=== PATIENT | male | born 1950 | race Caucasian/White ===

== ENCOUNTER 2016-09-10 10:01 | Day surgery (SDC) | payer MEDICARE ==
--- NOTE | ~2016-09-10 | CN ---
Consultation Report [facility] [address] [facility] [place]. [address] NAME: HELEN TAVAREZ : 46 STATUS : [facility]#: [id number] AGE: 65 ADM/REG DATE : 09/10/16 MR#: [id number] REPORT SERV DATE: 09/10/16 DICTATED BY: ILAN LIPSCOMB DATE: 09/10/16 REPORT STATUS : Draft TRANSCRIBED BY: MODOle DATE: 09/10/16 CONSULTATION REPORT DATE OF CONSULTATION: Dear Dr. Angle Lawrence: Thank you for requesting my opinion regarding evaluation and management of Mr. Helen Tavarez' right upper lobe lung mass and multiple pulmonary nodules. Mr. Tavarez is an extremely pleasant 65-year-old gentleman with a significant past medical history of former tobacco abuse, asthma, bronchitis, and pulmonary embolism who presents for formal evaluation for EBUS and navigation bronchoscopy. The patient had an abnormal PET-CT scan that demonstrated three right-sided pulmonary lesions and CT scan on 04/14/2016 demonstrated a 3.5 cm right upper lobe lung mass as well as small right lower lobe lung nodules. The patient underwent a bronchoscopy with biopsy of the right upper lobe lung mass on 04/16/2016, negative for malignancy. The patient completed an additional course of antibiotics and then had a PET-CT scan on 04/30/2016 that demonstrated a good uptake in the 1.3 cm right lower lobe pleural- based nodule with only faint uptake in the 3.2 x 2.4 cm right upper lobe lung nodule with no distant metastases. The patient underwent a CT-guided needle biopsy of the right lower lobe lung nodule that demonstrated a CT-guided needle biopsy performed on 06/03/2016 that demonstrated heavy chronic inflammation with dense scarring and reactive epithelial changes. Features of malignancy were not evident. The patient states that he has chronic shortness of breath, well localized to the chest, nonradiating with no significant alleviating or exacerbating factors. REVIEW OF SYSTEMS: A detailed 14-point review of systems was completed. Pertinent positives and negatives are listed above. PAST MEDICAL HISTORY: 1. Asthma. 2. Bronchitis. 3. Prior tobacco abuse. 4. History of PE. 5. Hypertension. 6. Prior history of pneumonia. 7. Skin cancer. PAST SURGICAL HISTORY: 1. Skin cancer surgery on his back. 2. Hernia repair. 3. Tonsillectomy. FAMILY HISTORY: Cerebrovascular accident, diabetes, malignant tumor of the colon, and Consultation Report [address] [place]. [address] NAME: HELEN TAVAREZ : [birth year] STATUS : [facility] PAT#: [id number] AGE: 65 ADM/REG DATE : 09/10/16 MR#: [id number] REPORT SERV DATE: 09/10/16 DICTATED BY: ILAN LIPSCOMB DATE: 09/10/16 REPORT STATUS : Draft TRANSCRIBED BY: SARAH DATE: 09/10/16 congestive heart failure. SOCIAL HISTORY: The patient is a former smoker, smoked five cigars in the lifetime, the last one was 50 years ago. He also abuses chewing tobacco two to four times daily. He denies any significant alcohol or illicit drug abuse. PHYSICAL EXAMINATION: VITAL SIGNS: Reviewed and located in the paper chart. GENERAL: In no acute distress. Able to communicate in full paragraphs at a time. HEENT: Normocephalic and atraumatic. Pupils are equal, round, and reactive to light and accommodation. Posterior oropharynx is clear. NECK: No JVD. No LAD. Trachea midline. CARDIOVASCULAR: Regular rate and rhythm. S1 and S2 present. LUNGS: Clear to auscultation bilaterally. ABDOMEN: Nontender and nondistended. Soft. Positive bowel sounds. EXTREMITIES: No clubbing, cyanosis, or edema. SKIN: No new rashes, lesions, or ulcers. Chronic venous stasis changes. PSYCHIATRIC: Alert and oriented x3. Appropriate mood and affect. Appropriate insight and judgment. NEUROLOGIC: 5/5 strength in upper and lower extremities. Cranial nerves II through XII are intact. Gait not tested. DTRs not performed. DIAGNOSTIC DATA: CT scan of the chest performed on 08/19/2016 demonstrated three right-sided pulmonary nodules and possibly two or three smaller ones, three of the largest lung nodules have increased in size since the prior CT scan on 06/03/2016 suggesting interval progression of the patient's disease process. ASSESSMENT AND PLAN: Mr. Helen Tavarez is an extremely pleasant 65-year-old gentleman with a significant past medical history of chronic obstructive pulmonary disease who presents for formal evaluation of multiple pulmonary nodules. The largest lung mass is in the right upper lobe. The patient underwent two prior biopsies including bronchoscopy by Dr. Angle Lawrence and a CT-guided needle biopsy that did not demonstrate malignancy. At this point, I recommend that we obtain an EBUS and navigation bronchoscopy. However, some of the lesions are inaccessible through EBUS bronchoscopy alone. I will also speak with cardiothoracic surgeon, Dr. Franco, for his input. The patient is aware that bronchoscopy is associated with potential life-threatening risks, including lung collapse, respiratory failure, and even . RECOMMENDATIONS: A summary of my recommendations are as follows: 1. Proceed with EBUS and navigation bronchoscopy for biopsies of mediastinal lymphadenopathy and the right upper lobe lung lesion. 2. Co-consultation with Dr. Ivan Franco of Thoracic Surgery for additional input regarding some of the other pulmonary nodules. 3. Regardless either if biopsies or surgical interventions are inconclusive, the patient Consultation Report [address] [place]. [address] NAME: HELEN TAVAREZ : 46 STATUS : [facility] PAT#: [id number] AGE: 65 ADM/REG DATE : 09/10/16 MR#: [id number] REPORT SERV DATE: 09/10/16 DICTATED BY: ILAN LIPSCOMB DATE: 09/10/16 REPORT STATUS : Draft TRANSCRIBED BY: SARAH DATE: 09/10/16 will require mandatory continued followup regarding these pulmonary nodules. Thank you for allowing me to participate in Mr. Helen Tavarez' care. XOCHITL/SARAH Ilan Lipscomb M.D. / [id number] CC: Robert Thomason BRIAN
--- NOTE | ~2016-09-10 | EGD ---
EGD REPORT [facility] [address] [address] NAME: HELEN TAVAREZ : 46 STATUS : REG [facility] PAT#: [id number] AGE: 65 ADM/REG DATE : 09/10/16 MR#: [id number] REPORT SERV DATE: 09/10/16 DICTATED BY: PORTIA LIPSCOMB DATE: 09/10/16 REPORT STATUS : Draft [facility]ANS[facility]: [facility] DATE: 09/10/16 Pulmonology Patient Name: Helen Tavarez Procedure Date: 09/10/2016 1:44 PM Date of : 1950 Attending MD: TIP LIPSCOMB MD Procedure Date No Time: 09/10/2016 Procedure: EBUS Navigational Bronchoscopy Indications: RUL lung mass Providers: TIP LIPSCOMB MD Referring MD: Tin Daily Medicines: Lidocaine 2% 20 mL Complications: No immediate complications Procedure: Pre-Anesthesia Assessment: - ASA Grade Assessment: III - A patient with severe systemic disease. - A History and Physical has been performed. Patient meds and allergies have been reviewed. The risks and benefits of the procedure and the sedation options and risks were discussed with the patient. All questions were answered and informed consent was obtained. Patient identification and proposed procedure were verified prior to the procedure by the physician and the nurse in the pre-procedure area in the procedure room. Mental Status Examination: normal. CV Examination: normal and RRR, no murmurs, no S3 or S4. ASA Grade Assessment: IV - A patient with severe systemic disease that is a constant threat to life. After reviewing the risks and benefits, the patient was deemed in satisfactory condition to undergo the procedure. The anesthesia plan was to use general anesthesia. Immediately prior to administration of medications, the patient was re-assessed for adequacy to receive sedatives. The heart rate, respiratory rate, oxygen saturations, blood pressure, adequacy of pulmonary ventilation, and response to care were monitored throughout the procedure. The physical status of the patient was re-assessed after the procedure. After obtaining informed consent, the Bronchoscope was introduced through the mouth, via the endotracheal tube (the patient was intubated for the procedure) and advanced to the tracheobronchial tree. the BF [id number] was introduced through the and advanced to the. The procedure was accomplished without difficulty. The patient tolerated the procedure well. Findings: EGD REPORT [address] [place]. [address] NAME: HELEN TAVAREZ : 46 STATUS : REG [facility]#: [id number] AGE: 65 ADM/REG DATE : 09/10/16 MR#: [id number] REPORT SERV DATE: 09/10/16 DICTATED BY: PORTAI LIPSCOMB DATE: 09/10/16 REPORT STATUS : Draft [facility]ANSCRIBED BY: [facility] DATE: 09/10/16 The endotracheal tube is in good position. The visualized portion of the trachea is of normal caliber. The angela is sharp. The tracheobronchial tree was examined to at least the first subsegmental level. RUL anterior subsegment is bronchostenosed. Balloon bronchoplasty was performed with a paulina #4 successfully. Previous to bronchoplasty the EWC could not be passed. EBUS TBNA of lymph node level 7 x 4 passes for cytology EBUS TBNA of lymph node level 4R x 4 passes for cytology Using SuperDimension Edge catheter 180, peripheral probe EBUS 17s, and fluoroscopy, I performed the following biopsies: RUL lung mass transbronchial needle aspirates x 7 passes for cytology RUL lung mass transbronchial brush biopsies x 3 passes for cytology RUL lung mass transbronchial forcep biopsies x 9 passes for histopathology SANDY endobronchial brush biopsies were performed for the Percepta Bronchoalveolar lavage was performed in the right upper lobe of the lung and sent for cell count, cytology, bacterial culture, viral smears \T\ culture, and fungal and AFB analysis. 180 mL of fluid were instilled. 40 mL were returned. The return was blood-tinged and cellular. Impression: Rapid On-Site Evaluation (RAINA): Preliminary cytology is suggestive of a benign lesion (final results are pending). Successful balloon bronchoplasty performed of the RUL anterior susegment. Recommendation: - Await test results. - Await Percepta test to assess post test probability of malignancy. - If negative for malignancy, we will consider Thoracic Surgical consultation with Dr. Ivan Franco. Attending Participation: I personally performed the entire procedure. TIP LIPSCOMB MD 09/10/2016 3:46 PM This report has been signed electronically. Number of Addenda: 0 Note Initiated On: 09/10/2016 1:44 PM [address] [place] [address]
[~2016-09-10 10:01] MED LIST: LOP25 PO; XARELTO10 MG PO; XARELTO20 MG PO
[2016-09-10 10:30] LABS: BASOPHILS 1.1 %; EOSINOPHILS 4.1 %; EOSINOPHILS ABSOLUTE 0.36 10/3/uL (0.0-0.53); HEMATOCRIT 48.8 % (40.0-51.0); HEMOGLOBIN 16.4 g/dL (13.6-17.8); IMMATURE GRANULOCYTES 0.3 %; IMMATURE GRANULOCYTES ABSOLUTE 0.03 10/3/uL (0.0-0.11); LYMPHOCYTES 29.1 %; LYMPHOCYTES ABSOLUTE 2.55 10/3/uL (0.67-4.30); MEAN CORPUS HGB CONC 33.6 g/dL (32.0-36.0); MEAN CORPUSCULAR HEMOGLOB 30.4 pg (26.0-34.0); MEAN CORPUSCULAR VOLUME 90.5 fL (80-100); MEAN PLATELET VOLUME 9.9 fL (9.2-13.0); MONOCYTES 10.5 %; MONOCYTES ABSOLUTE 0.92 10/3/uL (0.21-1.20); NEUTROPHILS 54.9 %; PLATELET COUNT 224 10/3/uL (150-400); RBC DISTRIBUTION WIDTH 14.1 % (12.0-16.0); RED CELL COUNT 5.39 10/6/uL (4.7-6.1); WHITE BLOOD CELLS 8.8 10/3/uL (4.5-10.5)
[2016-09-10 10:34] LABS: PARTIAL THROMBO TIME 29.2 SEC (22.5-37.2)
[2016-09-10 10:37] LABS: MANUAL DIFF NO %
[2016-09-10 10:38] LABS: BUN (BLOOD UREA NITROGEN) 11 MG/DL (6-23); CALCIUM, SERUM 9.4 MG/DL (8.5-10.4); CHLORIDE, SERUM 105 MMOL/L (96-112); CO2 (CARBON DIOXIDE) 28 MMOL/L (24-34); CREATININE 0.89 MG/DL (0.70-1.30); GFR AFRICAN AMERICAN 103 ML/MIN (>=60); GFR NON AFRICAN AMERICAN 88 ML/MIN (>=60); GLUCOSE, SERUM 112 MG/DL (60-99); POTASSIUM, SERUM 4.4 MMOL/L (3.5-5.3); SODIUM, SERUM 140 MMOL/L (135-148)
[2016-09-10 17:52] LABS: BD FL LYMPH (NOT ORD) 30 %; BD FL SOURCE (NOT ORD) BAL RUL; BF BASO (NOT OF) 0 %; BF LARGE MONONUCLEAR 64 %; BODY FLUID EOS (NOT ORD) 0 %; BODY FLUID SEG (NOT ORD) 6 %
[2016-09-10 17:53] LABS: BF TOTAL CELL CT (NOT ORD 151 /MM3; BODY FLUID RBC (NOT ORD) 16000 /MM3
== END 2016-09-10 18:12 | disposition home or self-care (01) ==
LOC: DMU 10:01
PROVIDERS: Anesthesiology; Internal Medicine
PROC: 07B74ZX Excision of Thorax Lymphatic, Percutaneous Endoscopic Approach, Diagnostic (ICD-10-PCS; principal; 2016-09-10 11:30)
PROC: 0B9C8ZX Drainage of Right Upper Lung Lobe, Via Natural or Artificial Opening Endoscopic, Diagnostic (ICD-10-PCS; 2016-09-10 11:30)
PROC: 0BBC8ZX Excision of Right Upper Lung Lobe, Via Natural or Artificial Opening Endoscopic, Diagnostic (ICD-10-PCS; 2016-09-10 11:30)
DX: R91.8 Other nonspecific abnormal finding of lung field (principal); I10 Essential (primary) hypertension; I82.409 Acute embolism and thrombosis of unspecified deep veins of unspecified lower extremity; Z79.899 Other long term (current) drug therapy
CPT/HCPCS: 71010; 80048; 85025; 85610; 85730; 87015; 87070; 87102; 87116; 87205; 88112; 88172; 88173; 88177; 88305; 88333; 89051; 93005; A9270-GY; C1725; C1757; J2710; J3010